=== PATIENT | male | born 1955 | race Caucasian/White ===

== ENCOUNTER → 2022-02-03 | Outpatient (CLI) | payer MEDICARE ==
[2022-02-03 10:33] LABS: Glucose,Whole Blood 162 mg/dL (70-110)
[2022-02-03 11:31] LABS: African American GFR (CKD) 48 (>60 ml/min/1.73 sqM); Anion Gap 11 mmol/L; Blood Urea Nitrogen 17 mg/dL (9-20); Carbon Dioxide 23 mmol/L (22-30); Chloride 105 mmol/L (98-107); Glucose 157 mg/dL (74-99); Non-African American GFR(CKD) 41 (>60 ml/min/1.73 sqM); Potassium 4.1 mmol/L (3.5-5.1); Sodium 139 mmol/L (137-145)
[2022-02-03 11:34] LABS: Appearance,Urine Turbid (Clear); Bacteria,Urine Occasional /hpf; Bilirubin,Urine Negative (Negative); Blood,Urine Moderate (Negative); Color,Urine Yellow; Glucose,Urine (UA) Negative (Negative); Ketones,Urine Negative (Negative); Leukocyte Esterase,Urine Large (Negative); Nitrite,Urine Negative (Negative); PH, Urine 6.5 (5.0-8.0); Protein,Urine 3+ (Negative); RBC,Urine 87 /hpf (0-5); Specific Gravity,Urine 1.016 (1.001-1.035); Squamous Epithelial Cell,Urine 1 /hpf (0-4); Urobilinogen,Urine <2.0 mg/dL (<2.0); WBC,Urine >182 /hpf (0-5)
[2022-02-03 11:44] LABS: Basophils # (A) 0.2 k/uL (0-0.2); Basophils % (A) 1 %; Eosinophils # (A) 0.3 k/uL (0-0.7); Eosinophils % (A) 2 %; HCT 37.1 % (39.0-53.0); HGB 11.1 gm/dL (13.0-17.5); Hypochromasia Marked; Lymphocytes % (A) 13 %; MCH 26.5 pg (25.0-35.0); MCV 88.3 fL (80.0-100.0); Mean Platelet Volume 7.9; Monocytes # (A) 0.7 k/uL (0-1.0); Monocytes % (A) 4 %; Neutrophils % (A) 78 %; Platelet Count 320 k/uL (150-450); RDW 15.4 % (11.5-15.5); WBC 15.4 k/uL (3.8-10.6)
== END | disposition home or self-care (01) ==
LOC: LABPAT 09:33
PROVIDERS: ATTEND Urology
DX: Z01.812 Encounter for preprocedural laboratory examination (principal); N40.1 Benign prostatic hyperplasia with lower urinary tract symptoms; N13.30 Unspecified hydronephrosis
CPT/HCPCS: 80048; 81001; 85025; 87086

== ENCOUNTER 2022-02-10 05:52 | Day surgery (SDC) | payer MEDICARE ==
--- NOTE | 2022-02-05 13:41 | P.HPIHPCON ---
History of Present Illness H&P Date: 02/05/22 This is a 66-year-old male with history of urinary retention, history of multiple trial of void. Underwent a CMG which showed evidence of bladder tone. Cystoscopy showed evidence of obstructive prostate. Option of a transurethral resection of the prostate was discussed with the patient and his . Discussed the risks which include but not limited to bleeding, infection, urinary incontinence, ED, retrograde ejaculation, persistent retention and urethral strictures. Risk from anesthesia was also discussed. He understood all the risk and agreed to proceed Consent for Procedure: I have explained the operation/procedure to the patient, including the risks, benefits, side effects, alternative therapies (including not receiving the proposed treatment or service), the likelihood of the patient achieving his/her goals, and potential recuperation problems for the procedure/sedation/analgesia, as well as any blood products, if indicated. I also explained to the patient the risks, benefits and side effects of the alternatives, as well as the risks related to not receiving the proposed procedure, care, treatment, or services. Surgical - Exam - General no distress, no pain - Eyes normal ocular movement, no pale - ENT normal nares, normal mucosa - Respiratory normal expansion, normal respiratory effort - Psychiatric oriented to time, oriented to person, oriented to place Assessment and Plan Assessment: All wire for a TURP
[2022-02-07 09:27] VITALS: BMI 22.9
[~2022-02-10 05:52] MED LIST: CIPROFLOXACIN/DEXTROSE PMX 400 MG in DEXTROSE/WATER 1 200ML.BAG IVPB PRN; GENTAMICIN 120 MG in SODIUM CHLORIDE 0.9% 100 ML IVPB PRN
[2022-02-10] MEDS ORDERED: ONDANSETRON 4 MG/2 ML VIAL IVP ONE (06:10)
[2022-02-10] MEDS ORDERED: DEXAMETHASONE SOD PHOSPHATE 4 MG/ML 1 ML VIAL IV ONE (06:10)
[2022-02-10] MEDS ORDERED: MIDAZOLAM 2 MG/2 ML VIAL IV PRN (06:10)
[2022-02-10] MEDS ORDERED: LACTATED RINGERS 1,000 ML IV SCH (06:10)
[2022-02-10] MEDS ORDERED: HYDROmorphone 0.5 MG/0.5 ML SYRINGE IVP PRN (07:00)
[2022-02-10] MEDS ORDERED: LIDOCAINE 2% INJ 20 MG/ML (2 ML VIAL) ONE (07:08)
[2022-02-10] MEDS ORDERED: GLYCOPYRROLATE 0.2 MG/ML 2 ML VIAL ONE (07:08)
[2022-02-10] MEDS ORDERED: PROPOFOL 10 MG/ML 20 ML VIAL IV ONE (07:08)
[2022-02-10] MEDS ORDERED: NEOSTIGMINE 1 MG/ML 10 ML VIAL ONE (07:08)
[2022-02-10] MEDS ORDERED: MIDAZOLAM 2 MG/2 ML VIAL ONE (07:08)
[2022-02-10] MEDS ORDERED: PHENYLEPHRINE-0.9% NACL SYG 1,000 MCG/10 ML SYRINGE ONE (07:08)
[2022-02-10] MEDS ORDERED: fentaNYL (PF) 50 MCG/ML 2 ML AMP ONE (07:08)
[2022-02-10] MEDS ORDERED: ROCURONIUM 10 MG/ML (5 ML VIAL) IV ONE (07:08)
[2022-02-10] MEDS ORDERED: IOPAMIDOL-370 150ML BTL MISCELLANE ONE (07:36)
--- NOTE | 2022-02-10 07:57 | FL ---
Intraoperative/procedural fluoroscopic services were provided for bilateral retrograde pyelogram. Tot al fluoroscopy time is 32 seconds with a total of 3 submitted images to PACS. Please see the operativ e note for further details.
[2022-02-10 08:45] VITALS: TEMP 97
[2022-02-10 08:47] VITALS: RESP 16
--- NOTE | 2022-02-10 09:02 | P.OP ---
Date of Procedure: 02/10/22 Preoperative Diagnosis: BPH, bilateral hydronephrosis Postoperative Diagnosis: Same Procedure(s) Performed: Cystoscopy, bilateral retrograde pyelogram, bilateral stent removal, TURP Implants: none Anesthesia: CLIFF Surgeon: Roberto Alves Estimated Blood Loss (ml): 50 Pathology: other (prostate tissue) Condition: stable Disposition: PACU Indications for Procedure: This is a 66-year-old male with history of urinary retention, history of multiple trial of void. Underwent a CMG which showed evidence of bladder tone. Cystoscopy showed evidence of obstructive prostate. Option of a transurethral resection of the prostate was discussed with the patient and his . Discussed the risks which include but not limited to bleeding, infection, urinary incontinence, ED, retrograde ejaculation, persistent retention and urethral strictures. Risk from anesthesia was also discussed. He understood all the risk and agreed to proceed Operative Findings: Adequate drainage of contrast from the bilateral collecting system, obstructive median lobe with a high medium bar Description of Procedure: Patient brought to the operating room, general anesthesia was induced. He was prepped and draped in sterile fashion and placed in dorsal lithotomy position. Cystoscopy fitted with 22-Armenian sheath was inserted per urethra, cystoscopy was performed which showed a heavily trabeculated bladder. There was evidence of a posterior bladder diverticulum. Additionally patient had an obstructive median lobe with a high medium bar. Of note the prostate was small but the bladder neck was almost completely obstructed secondary to the median lobe. Attention first was carried to the ureteral stent on the right, stent was grasped and removed to the meatus. Next a sensor wire was advanced through the stent and the stent was removed with the wire in place. Next an open-ended catheter was advanced over the wire, the wire removed with the catheter in place. Next retrograde Polygram was performed on the right side which showed a dilated ureter. Mild dilation of the collecting system. At this time the catheter was removed and delayed images were obtained, delayed images showed excellent drainage of the contrast. There was no residual contrast in the ureter. Attention was then carried to the left side, stent was grasped and removed to the meatus. Next a sensor wire was advanced through the stent the stent was removed with the wire in place. Next the catheter was advanced over the wire, the wire was removed with the catheter in place. Next retrograde pyelogram was performed through the catheter, retrograde showed a dilated ureter with mild dilation of the collecting system. But on obtaining delayed images there was excellent drainage of contrast. Given the drainage of contrast bilaterally decision was made to leave the stent out. At this time the cystoscope was withdrawn and a resectoscope fitted with a 25-Armenian sheath was inserted per urethra, using the bipolar resectoscope prostate was resected down to the surgical capsule. Resection was carried distal to the bladder neck, staying proximal to the veru. The area of bleeding was controlled with cautery. Repeats cystoscopy showed a wide open prostate fossa no evidence of bleeding. All prostate tissue was irrigated out and sent to pathology. At this time the resectoscope was withdrawn and a 20-Armenian coud catheter was placed with return of clear urine. The balloon was inflated to 30 mL. Patient tolerated the procedure was taken to recovery in stable condition
[2022-02-10 09:35] VITALS: BP 112/61; PULSE 86
== END 2022-02-10 10:17 | disposition home or self-care (01) ==
LOC: OR 05:52
PROVIDERS: ATTEND Urology
DX: N40.1 Benign prostatic hyperplasia with lower urinary tract symptoms (principal); N13.30 Unspecified hydronephrosis; R33.8 Other retention of urine; N13.8 Other obstructive and reflux uropathy; Z96.0 Presence of urogenital implants; N32.89 Other specified disorders of bladder; N32.3 Diverticulum of bladder; I12.9 Hypertensive chronic kidney disease with stage 1 through stage 4 chronic kidney disease, or unspecified chronic kidney disease; N18.30 Chronic kidney disease, stage 3 unspecified; Z99.2 Dependence on renal dialysis; E78.5 Hyperlipidemia, unspecified; J45.909 Unspecified asthma, uncomplicated; Z87.442 Personal history of urinary calculi; I69.351 Hemiplegia and hemiparesis following cerebral infarction affecting right dominant side; M19.90 Unspecified osteoarthritis, unspecified site; Z88.0 Allergy status to penicillin; Z79.899 Other long term (current) drug therapy; Z98.52 Vasectomy status; Z79.82 Long term (current) use of aspirin; Z80.9 Family history of malignant neoplasm, unspecified
CPT/HCPCS: 74420; 52601; 52005; C1758; C1769; J2250; J1100; J2710; J2405; J3010; J0744; J1580; J2370; J2704; Q9967; J2001; 88305; 88344

== ENCOUNTER → 2022-07-22 | Outpatient (CLI) | payer MEDICARE ==
--- NOTE | 2022-07-22 16:08 | US ---
EXAMINATION TYPE: US kidneys/renal and bladder DATE OF EXAM: 07/22/2022 COMPARISON: NONE CLINICAL HISTORY: 66-year-old male N13.30 UNSPECIFIED HYDRONEPHROSIS. Pt states h/o renal stones and renal stent placement and removal TECHNIQUE: Multiple sonographic images of the kidneys and bladder are obtained. FINDINGS: EXAM MEASUREMENTS: Right Kidney: 10.6 x 4.4 x 5.4 cm Left Kidney: 10.5 x 4.1 x 4.4 cm Right Kidney: Simple cyst lower pole= 4.4 x 4.1 x 4.1 cm. There is pelviectasis and minimal fullness of the calyceal system. Left Kidney: No evidence of hydronephrosis. Bladder: Severely trabeculated bladder wall. Possible 5mm calculus right bladder . At least one bladd er wall diverticula near the bladder dome measuring up to 5.2 cm. Bilateral Jets seen: No IMPRESSION: 1. Severe bladder wall trabeculations and at least one large diverticulum from the dome of the bladde r measuring 5.2 cm. Findings may reflect sequela of chronic bladder outlet obstruction and secondary muscular hypertrophy. Clinically correlate. Correlate with urine cytology and with urinalysis as well . There may be a 5 mm small bladder calculus. 2. Mild fullness of the right renal collecting system. Consider short interval follow-up to exclude e monica hydronephrosis. No hydronephrosis on the left. 3. Benign 4.4 cm cortical cyst right kidney.
== END | disposition home or self-care (01) ==
LOC: RADUSWWP 13:05
PROVIDERS: ATTEND Urology
DX: N13.30 Unspecified hydronephrosis (principal); N32.89 Other specified disorders of bladder; N32.3 Diverticulum of bladder; N28.1 Cyst of kidney, acquired; Z87.442 Personal history of urinary calculi
CPT/HCPCS: 76770

== ENCOUNTER 2022-11-07 18:28 | Emergency (ER) | payer MEDICARE ==
[2022-11-07 18:45] VITALS: TEMP 98
[2022-11-07 18:57] LABS: Glucose,Whole Blood 157 mg/dL (70-110)
--- NOTE | 2022-11-07 19:11 | CT ---
EXAMINATION TYPE: CT brain wo con for TPA CT DLP: 1831 mGycm, Automated exposure control for dose reduction was used. DATE OF EXAM: 11/07/2022 6:56 PM COMPARISON: 08/09/2012 CT brain, 08/06/2012 MRI brain. CLINICAL INDICATION:Male, 67 years old with history of Neuro deficit, acute, stroke suspected, TECHNIQUE: Brain: Axial CT images of the brain were obtained with coronal and sagittal reformats created and rev iewed. Contrast used: None. Oral contrast used: None. FINDINGS: Brain: Extra-axial spaces: No abnormal extra-axial fluid collections. Ventricular system: Dilatation in proportion to cerebral atrophy. Cerebral parenchyma: Low density areas within the left basal ganglia similar to prior. In prior right caudate nucleus lacunar injury. More remote appearing injury of the right occipital lobe. Somewhat d iffuse lower attenuation of the right MCA territory compared to left. Cerebral atrophy. No acute intr aparenchymal hemorrhage or mass effect. The blanco-white junction is well differentiated. Scattered hy poattenuating areas are seen within the white matter. Cerebellum: Unremarkable. Mass effect: No evidence of midline shift. Intracranial vasculature: Atherosclerotic calcifications of the intracranial vessels. Soft tissues: Normal. Calvarium/osseous structures: No depressed skull fracture. Paranasal sinuses and mastoid air cells: Mild scattered paranasal sinus disease. Visualized orbits: Orbital contents are intact. IMPRESSION: 1. No evidence for acute intercranial hemorrhage 2. Asymmetric decreased attenuation of the right MCA territory could represent ischemia. 3. Remote injuries of the bilateral basal ganglia right occipital lobe along with nonspecific white m atter changes.
[2022-11-07 19:13] VITALS: RESP 16
[2022-11-07] MEDS ORDERED: ASPIRIN 325 MG TAB PO STA (19:27)
[2022-11-07 19:29] LABS: ALT 18 U/L (4-49); AST 24 U/L (17-59); African American GFR (CKD) 54 (>60 ml/min/1.73 sqM); Albumin 4.1 g/dL (3.5-5.0); Alkaline Phosphatase 75 U/L (38-126); Anion Gap 14 mmol/L; Blood Urea Nitrogen 24 mg/dL (9-20); Calcium 8.5 mg/dL (8.4-10.2); Carbon Dioxide 22 mmol/L (22-30); Chloride 102 mmol/L (98-107); Creatine Kinase 152 U/L (55-170); Glucose 150 mg/dL (74-99); Non-African American GFR(CKD) 46 (>60 ml/min/1.73 sqM); Potassium 4.2 mmol/L (3.5-5.1); Sodium 138 mmol/L (137-145); Total Bilirubin 0.5 mg/dL (0.2-1.3); Total Protein 7.2 g/dL (6.3-8.2)
[2022-11-07 19:30] LABS: Alcohol <10 mg/dL
--- NOTE | 2022-11-07 19:30 | ED ---
General Adult HPI - General Chief complaint: Neuro Symptoms/Deficit Stated complaint: code alteplase Time Seen by Provider: 11/07/22 18:40 Source: patient Mode of arrival: ambulatory Limitations: no limitations - History of Present Illness Initial comments: 67-year-old male with past medical history of stroke presents to the emergency department reporting strokelike symptoms. He does have a history of stroke greater than 10 years ago. He was left with residual right upper extremity weakness. Patient is not on any blood thinners. reports that the patient was sitting on the couch watching TV this evening when he had sudden onset of aphasia. Patient was forced deviated to the right. EMS was called. Symptom onset was 1649. EMS did appreciate the symptoms however he had rapid improvement in route to the hospital. Upon hospital arrival the patient is able to answer questions appropriately however does have some visual neglect on the left. NIH is 5 (2 for right upper extremity weakness which is chronic). Patient denies headaches. No fevers. No head trauma. No chest pain or shortness of breath. No other alleviating, precipitating or modifying factors - Related Data Home Medications Medication Instructions Recorded Confirmed Aspirin [Adult Low Dose Aspirin EC] 81 mg PO DAILY 02/07/22 02/10/22 Budesonide/Glycopyr/Formoterol 1 puff INHALATION DAILY PRN 02/07/22 02/10/22 [Breztri Aerosphere Inhaler] Sulfamethox-Tmp 800-160Mg [Bactrim 1 tab PO DAILY 02/07/22 02/10/22 DS 800-160 mg] amLODIPine 10 mg PO DAILY 02/07/22 02/10/22 Previous Rx's Medication Instructions Recorded Phenazopyridine HCl [Pyridium] 100 mg PO TID #9 tab 02/10/22 Allergies Allergy/AdvReac Type Severity Reaction Status Date / Time Penicillins Allergy Unknown Verified 11/07/22 18:46 Review of Systems ROS Statement: Those systems with pertinent positive or pertinent negative responses have been documented in the HPI. ROS Other: All systems not noted in ROS Statement are negative. Past Medical History Past Medical History: CVA/TIA Additional Past Medical History / Comment(s): Current bladder infection, stroke 10 years ago, weakness on his R side. Wears brace on R leg. Just statrted on a inhaler. Just started Bactrim. History of Any Multi-Drug Resistant Organisms: None Reported Additional Past Surgical History / Comment(s): Colonoscopy, Additional Past Anesthesia/Blood Transfusion Reaction / Comment(s): Spouse s tates her gets "goofy". Past Psychological History: No Psychological Hx Reported Smoking Status: Never smoker - Past Family History Mother Family Medical History: No Reported History Sister(s) Family Medical History: Cancer Father Family Medical History: Cancer General Exam Limitations: altered mental status General appearance: alert, in no apparent distress Head exam: Present: atraumatic, normocephalic, normal inspection Eye exam: Present: normal appearance, PERRL, EOMI, other (Patient has neglect to the left side. Peripheral vision on the left side is impaired). Absent: scleral icterus, conjunctival injection, periorbital swelling ENT exam: Present: normal exam, mucous membranes moist Neck exam: Present: normal inspection. Absent: tenderness, meningismus, lymphadenopathy Respiratory exam: Present: normal lung sounds bilaterally. Absent: respiratory distress, wheezes, rales, rhonchi, stridor Cardiovascular Exam: Present: regular rate, normal rhythm, normal heart sounds. Absent: systolic murmur, diastolic murmur, rubs, gallop, clicks GI/Abdominal exam: Present: soft, normal bowel sounds. Absent: distended, tenderness, guarding, rebound, rigid Extremities exam: Present: other (Chronic weakness with contracture of the right arm. Does have some strength against gravity. This is chronic for the patient. 4 out of 5 strength of the left upper, left lower and right lower extremities) Neurological exam: Present: alert, oriented X3 Skin exam: Present: warm, dry, intact, normal color. Absent: rash Course Vital Signs 11/07/22 11/07/22 11/07/22 18:40 18:55 19:12 Temperature 98 F Pulse Rate 90 98 96 Respiratory 18 18 16 Rate Blood Pressure 179/104 180/104 183/95 O2 Sat by Pulse 89 L 98 95 Oximetry 11/07/22 11/07/22 11/07/22 19:27 20:00 20:16 Temperature Pulse Rate 96 93 91 Respiratory 16 16 16 Rate Blood Pressure 164/104 166/103 172/110 O2 Sat by Pulse 96 98 97 Oximetry EKG Findings - EKG Comments: EKG Findings:: EKG demonstrates sinus rhythm with a rate of 95. AR interval 171. QRS 94. QTC of 394. No acute ST segment elevations or depressions Medical Decision Making - Medical Decision Making Was pt. sent in by a medical professional or institution ([employer] Newton, DELIVERY AND INSTALLATION SUBCONTRACTOR, urgent care, hospital, or group home...) When possible be specific @ -No Did you speak to anyone other than the patient for history (EMS, parent, family, police, friend...)? What history was obtained from this source @ -EMS state that patient was completely deviated to the right on their arrival Did you review nursing and triage notes (agree or disagree)? Why? @ -I reviewed and agree with nursing and triage notes Were old charts reviewed (outside hosp., previous admission, EMS record, old EKG, old radiological studies, urgent care reports/EKG's, group home records)? Report findings @ -no charts reviewed Differential Diagnosis (chest pain, altered mental status, abdominal pain women, abdominal pain men, vaginal bleeding, weakness, fever, dyspnea, syncope, headache, dizziness, GI bleed, back pain, seizure, CVA, palpatations, mental health, musculoskeletal)? @ -CVA, brain mass, aneurysm rupture, complex migraine, TIA, SAH, SDH EKG interpreted by me (3pts min.). @ -yes - interpreted by me - please see above X-rays interpreted by me (1pt min.). @ -yes - interpreted by me CT interpreted by me (1pt min.). @ -yes - interpreted by me U/S interpreted by me (1pt. min.). @ -None done What testing was considered but not performed or refused? (CT, X-rays, U/S, labs)? Why? @ -None What meds were considered but not given or refused? Why? @ -None Did you discuss the management of the patient with other professionals (professionals i.e. [employer] Newton, DELIVERY AND INSTALLATION SUBCONTRACTOR, lab, RT, psych nurse, social worker masters, supervisor color paste mixing, teacher, seal delivery vehicle officer, bilingual patient support caseworker)? Give summary @ - Yes, discussed case with neurointensivist - wants patient transferred for angiogram Was smoking cessation discussed for >3mins.? @ -No Was critical care preformed (if so, how long)? @ -yes, 40 minutes for cva management Were there social determinants of health that impacted care today? How? (Homelessness, low income, unemployed, alcoholism, drug addiction, transportat ion, low edu. Level, literacy, decrease access to med. care, assisted, rehab)? @ -No Was there de-escalation of care discussed even if they declined (Discuss DNR or withdrawal of care, Hospice)? DNR status @ -No What co-morbidities impacted this encounter? (DM, HTN, Smoking, COPD, CAD, Cancer, CVA, ARF, Chemo, Hep., AIDS, mental health diagnosis, sleep apnea, morbid obesity)? @ -previous cva Was patient admitted / discharged? Hospital course, mention meds given and route, prescriptions, significant lab abnormalities, going to OR and other pertinent info. @ - Upon arrival patient is placed into room 2. Thorough history and physical exam was performed. IV had been established I EMS. Patient was on continuous pulse ox and cardiac monitoring. 12-lead EKG was obtained. NIH is assessed and is 5. Patient does have a score of 2 previous right upper extremity weakness. New-onset left neglect and left hemianopsia. Patient is sent for CT and CT angiography. I did speak with Dr. Teague. Patient does have concern for vascular malformation on angiogram. Would like the patient transferred to [facility]. I did call and speak with Dr. zabala in the emergency department does accept the patient is a transfer. Dr. Teague does recommend a full dose aspirin for which the patient is provided. Patient was agreeable to transfer. Neurologic status continued to improve and patient returned to a baseline age of 1 prior to discharge. COBRA forms are signed and patient transferred in stable condition Undiagnosed new problem with uncertain prognosis? @ -Yes Drug Therapy requiring intensive monitoring for toxicity (Heparin, Nitro, Insulin, Cardizem)? @ -No Were any procedures done? @ -No Diagnosis/symptom? @ -acute aphasia, acute visual deficit, suspected cva Acute, or Chronic, or Acute on Chronic? @ -acute Uncomplicated (without systemic symptoms) or Complicated (systemic symptoms)? @ -complicated Side effects of treatment? @ -No Exacerbation, Progression, or Severe Exacerbation? @ -No Poses a threat to life or bodily function? How? (Chest pain, [place], [place], pneumonia, PE, COPD, DKA, ARF, appy, cholecystitis, CVA, Diverticulitis, Homicidal, Suicidal, threat to staff... and all critical care pts) @ -yes - Lab Data Result diagrams: 11/07/22 19:11 11/07/22 19:11 Lab Results 11/07/22 11/07/22 11/07/22 Range/Units 18:55 19:11 19:11 WBC 7.5 (3.8-10.6) k/uL RBC 4.52 (4.30-5.90) m/uL Hgb 12.1 L (13.0-17.5) gm/dL Hct 36.5 L (39.0-53.0) % MCV 80.9 (80.0-100.0) fL MCH 26.7 (25.0-35.0) pg MCHC 33.0 (31.0-37.0) g/dL RDW 14.7 (11.5-15.5) % Plt Count 85 L (150-450) k/uL MPV 7.7 Neutrophils % (Manual) 80 % Lymphocytes % (Manual) 15 % Monocytes % (Manual) 5 % Neutrophils # (Manual) 6.00 (1.3-7.7) k/uL Lymphocytes # (Manual) 1.13 (1.0-4.8) k/uL Monocytes # (Manual) 0.38 (0-1.0) k/uL Nucleated RBCs 0 (0-0) /100 WBC Manual Slide Review Performed Ovalocytes Present Sodium 138 (137-145) mmol/L Potassium 4.2 (3.5-5.1) mmol/L Chloride 102 (98-107) mmol/L Carbon Dioxide 22 (22-30) mmol/L Anion Gap 14 mmol/L BUN 24 H (9-20) mg/dL Creatinine 1.52 H (0.66-1.25) mg/dL Est GFR (CKD-EPI)AfAm 54 (>60 ml/min/1.73 sqM) Est GFR (CKD-EPI)NonAf 46 (>60 ml/min/1.73 sqM) Glucose 150 H (74-99) mg/dL POC Glucose (mg/dL) 157 H (70-110) mg/dL POC Glu Cream Hauler ID Asad Shearer Calcium 8.5 (8.4-10.2) mg/dL Total Bilirubin 0.5 (0.2-1.3) mg/dL AST 24 (17-59) U/L ALT 18 (4-49) U/L Alkaline Phosphatase 75 (38-126) U/L Creatine Kinase 152 (55-170) U/L Troponin I (0.000-0.034) ng/mL Total Protein 7.2 (6.3-8.2) g/dL Albumin 4.1 (3.5-5.0) g/dL Serum Alcohol <10 mg/dL 11/07/22 Range/Units 19:11 WBC (3.8-10.6) k/uL RBC (4.30-5.90) m/uL Hgb (13.0-17.5) gm/dL Hct (39.0-53.0) % MCV (80.0-100.0) fL MCH (25.0-35.0) pg MCHC (31.0-37.0) g/dL RDW (11.5-15.5) % Plt Count (150-450) k/uL MPV Neutrophils % (Manual) % Lymphocytes % (Manual) % Monocytes % (Manual) % Neutrophils # (Manual) (1.3-7.7) k/uL Lymphocytes # (Manual) (1.0-4.8) k/uL Monocytes # (Manual) (0-1.0) k/uL Nucleated RBCs (0-0) /100 WBC Manual Slide Review Ovalocytes Sodium (137-145) mmol/L Potassium (3.5-5.1) mmol/L Chloride (98-107) mmol/L Carbon Dioxide (22-30) mmol/L Anion Gap mmol/L BUN (9-20) mg/dL Creatinine (0.66-1.25) mg/dL Est GFR (CKD-EPI)AfAm (>60 ml/min/1.73 sqM) Est GFR (CKD-EPI)NonAf (>60 ml/min/1.73 sqM) Glucose (74-99) mg/dL POC Glucose (mg/dL) (70-110) mg/dL POC Glu Cream Hauler ID Calcium (8.4-10.2) mg/dL Total Bilirubin (0.2-1.3) mg/dL AST (17-59) U/L ALT (4-49) U/L Alkaline Phosphatase (38-126) U/L Creatine Kinase (55-170) U/L Troponin I <0.012 (0.000-0.034) ng/mL Total Protein (6.3-8.2) g/dL Albumin (3.5-5.0) g/dL Serum Alcohol mg/dL Critical Care Time Critical Care Time: Yes Critical Care Time: 40 minutes for code alteplase activation Disposition Clinical Impression: Aphasia, Visual disturbance, CVA (cerebral vascular accident) Disposition: OTHER INSTITUTION NOT DEFINED Condition: Serious Is patient prescribed a controlled substance at d/c from ED?: No Referrals: Jaden Cordero MD [Primary Care Provider] - 1-2 days Time of Disposition: 19:27 Decision to Admit Reason: Admit from EC Decision Date: 11/07/22 Decision Time: 19:27 - Out of Hospital Transfer - Req. Specs Out of Hospital Transfer - Requested Specifics: Other Emergency Center ([facility])
--- NOTE | 2022-11-07 19:48 | CT ---
EXAMINATION TYPE: CT angio head neck CT DLP: 1831.5 mGycm, Automated exposure control for dose reduction was used. DATE OF EXAM: 11/07/2022 7:15 PM COMPARISON: CT head same day. CLINICAL INDICATION:Male, 67 years old with history of Neuro deficit, acute, stroke suspected; PHH, n euro deficit TECHNIQUE: Axially acquired helical CT angiogram of the head and neck was obtained with contrast. Axi al images are supplemented with 3D reconstructions which [facility] NASCET criteria used. Contrast used:65ml mL of Isovue 370 with IV Contrast, Oral contrast used: None. FINDINGS: CTA HEAD: No evidence of acute intracranial hemorrhage, mass effect, or midline shift. The ventricles, sulci, a nd cisterns are unremarkable. The visualized portions of the internal carotid arteries, middle cerebral arteries, anterior cerebral arteries, and posterior cerebral arteries are patent. Atherosclerosis of the intracranial internal c arotid arteries. The basilar and vertebral arteries are patent. CTA NECK: Right Carotid System: The common carotid and external carotid arteries are patent. There is approximately 25% stenosis at t he carotid bifurcation secondary to calcified/noncalcified plaquing. The rest of the internal carotid artery is patent. Left Carotid System: The common carotid and external carotid arteries are patent. There is approximately 25% stenosis at t he carotid bifurcation secondary to calcified/noncalcified plaquing. The rest of the internal carotid artery is patent. Vertebral arteries are patent without evidence hemodynamically significant stenosis. There is a three-vessel aortic arch. The origins of the great vessels are patent. No evidence of hemo dynamically significant stenosis. IMPRESSION: 1. No evidence of dissection of the cervical internal carotid arteries or vertebral arteries or any e vidence of significant stenosis at the carotid bifurcations. 2. No evidence of intracranial high-grade stenosis or intracranial aneurysm.
[2022-11-07 20:05] LABS: HCT 36.5 % (39.0-53.0); HGB 12.1 gm/dL (13.0-17.5); MCH 26.7 pg (25.0-35.0); MCV 80.9 fL (80.0-100.0); Mean Platelet Volume 7.7; RBC 4.52 m/uL (4.30-5.90); RDW 14.7 % (11.5-15.5); WBC 7.5 k/uL (3.8-10.6)
--- NOTE | 2022-11-07 20:05 | XR ---
EXAMINATION TYPE: XR chest 2V DATE OF EXAM: 11/07/2022 7:56 PM COMPARISON: Chest radiographs from 08/05/2012, CTA 08/08/2012 TECHNIQUE: XR chest 2V Frontal and lateral views of the chest. CLINICAL INDICATION:Male, 67 years old with history of altered mental status; FINDINGS: Lungs/Pleura: No evidence of focal consolidation or pneumothorax. Blunting of the costophrenic angles is present. Pulmonary vascularity: Unremarkable. Heart/mediastinum: Cardiomediastinal silhouette is enlarged and stable. Musculoskeletal: No acute osseous pathology. IMPRESSION: Cardiomegaly, pulmonary vascular congestion and bilateral pleural effusions. Correlate with BNP for c ongestive heart failure.
[2022-11-07 20:21] VITALS: BP 172/110; PULSE 91
[2022-11-07 20:25] LABS: Platelet Count 85 k/uL (150-450)
[2022-11-07 20:54] LABS: Lymphocytes # (M) 1.13 k/uL (1.0-4.8); Monocytes # (M) 0.38 k/uL (0-1.0); Neutrophils % (M) 80 %; Nucleated Red Blood Cells 0 /100 WBC (0-0); Total Cells Counted 100
[2022-11-07 20:55] LABS: Ovalocytes Present
== END 2022-11-07 20:25 | disposition other institution (70) ==
LOC: EC 18:28
DX: R47.01 Aphasia (principal); H53.9 Unspecified visual disturbance; I63.9 Cerebral infarction, unspecified; Z88.0 Allergy status to penicillin; Z79.82 Long term (current) use of aspirin
CPT/HCPCS: 36415; 93005; 80053; 82550; 84484; 85025; 71046; 70496; 70450; 70498; 99291; G0480; Q9967; 80320

== ENCOUNTER 2023-04-30 12:07 | Emergency (ER) | payer MEDICARE ==
[2023-04-30] MEDS ORDERED: DIPH,PERTUS(ACELL)TETVAC-LF 0.5 ML VIAL IM ONE (13:51)
[2023-04-30] MEDS ORDERED: LIDOCAINE 1% INJ 10MG/ML (20 ML MDV) SQ ONE (13:51)
--- NOTE | 2023-04-30 14:08 | ED ---
General Adult HPI - General Chief complaint: Wound/Laceration Stated complaint: laceration/left hand Time Seen by Provider: 04/30/23 13:24 Source: patient, RN notes reviewed Mode of arrival: ambulatory Limitations: no limitations - History of Present Illness Initial comments: Patient is a 67-year-old male presenting to the ER with a chief complaint of a fall/hand injury. Patient states he tripped over his cat this morning and fell hitting an antique table. Patient states he hit the back of his head and has a knot on his head. Denies loss of consciousness or nausea/vomiting. Patient states he was on blood thinners but was taken off about 3 months ago. Patient is unsure of his latest tetanus vaccination. Patient denies any other complaints at this time. - Related Data Home Medications Medication Instructions Recorded Confirmed Aspirin [Adult Low Dose Aspirin EC] 81 mg PO DAILY 02/07/22 02/10/22 Budesonide/Glycopyr/Formoterol 1 puff INHALATION DAILY PRN 02/07/22 02/10/22 [Breztri Aerosphere Inhaler] Sulfamethox-Tmp 800-160Mg [Bactrim 1 tab PO DAILY 02/07/22 02/10/22 DS 800-160 mg] amLODIPine 10 mg PO DAILY 02/07/22 02/10/22 Previous Rx's Medication Instructions Recorded Phenazopyridine HCl [Pyridium] 100 mg PO TID #9 tab 02/10/22 Allergies Allergy/AdvReac Type Severity Reaction Status Date / Time Penicillins Allergy Unknown Verified 04/30/23 12:31 Review of Systems ROS Statement: Those systems with pertinent positive or pertinent negative responses have been documented in the HPI. ROS Other: All systems not noted in ROS Statement are negative. Past Medical History Past Medical History: CVA/TIA Additional Past Medical History / Comment(s): Current bladder infection, stroke 10 years ago, weakness on his R side. Wears brace on R leg. Just statrted on a inhaler. Just started Bactrim. History of Any Multi-Drug Resistant Organisms: None Reported Additional Past Surgical History / Comment(s): Colonoscopy, Additional Past Anesthesia/Blood Transfusion Reaction / Comment(s): Spouse states her gets "goofy". Past Psychological History: No Psychological Hx Reported Smoking Status: Never smoker Past Alcohol Use History: None Reported Past Drug Use History: Marijuana - Past Family History Mother Family Medical History: No Reported History Sister(s) Family Medical History: Cancer Father Family Medical History: Cancer General Exam Limitations: no limitations General appearance: alert, in no apparent distress Head exam: Present: other (golf ball size scalp hematoma noted) Eye exam: Present: normal appearance, PERRL, EOMI. Absent: scleral icterus, conjunctival injection, periorbital swelling Respiratory exam: Present: normal lung sounds bilaterally. Absent: respiratory distress, wheezes, rales, rhonchi, stridor Cardiovascular Exam: Present: regular rate, normal rhythm, normal heart sounds. Absent: systolic murmur, diastolic murmur, rubs, gallop, clicks GI/Abdominal exam: Present: soft, normal bowel sounds. Absent: distended, tenderness, guarding, rebound, rigid Extremities exam: Present: other (Ecchymosis noted over right first digit IP joint. Limited ROM.) Neurological exam: Present: alert, oriented X3, CN II-XII intact Psychiatric exam: Present: normal affect, normal mood Skin exam: Present: other (left hand laceration on dorsal aspect proximal to 4th and 5th digits. ) Course Vital Signs 04/30/23 04/30/23 04/30/23 12:26 14:20 15:41 Temperature 97.4 F L 98 F 98 F Pulse Rate 79 67 65 Respiratory 18 16 16 Rate Blood Pressure 131/77 137/81 140/74 O2 Sat by Pulse 99 98 98 Oximetry 04/30/23 16:57 Temperature 98 F Pulse Rate 69 Respiratory 18 Rate Blood Pressure 138/76 O2 Sat by Pulse 98 Oximetry Procedures - Laceration Laceration #1 Consent Obtained: verbal consent Site: hand Description: flap Depth: simple, single layer Anesthetic Used: lidocaine 1% Anesthesia Technique: local infiltration Amount (mls): 5 Pre-repair: wound explored, irrigated extensively, deep structures intact Type of Sutures: nylon Size of Sutures: 4-0 Number of Sutures: 8 Technique: simple, interrupted Patient Tolerated Procedure: well, no complications Medical Decision Making - Medical Decision Making Was pt. sent in by a medical professional or institution (, PA, LITIGATION ASSISTANT, urgent care, hospital, or long term...) When possible be specific @ -No Did you speak to anyone other than the patient for history (EMS, parent, family, police, friend...)? What history was obtained from this source @ -No Did you review nursing and triage notes (agree or disagree)? Why? @ -I reviewed and agree with nursing and triage notes Were old charts reviewed (outside hosp., previous admission, EMS record, old EKG, old radiological studies, urgent care reports/EKG's, long term records)? Report findings @ -No old charts were reviewed Differential Diagnosis (chest pain, altered mental status, abdominal pain women, abdominal pain men, vaginal bleeding, weakness, fever, dyspnea, syncope, headache, dizziness, GI bleed, back pain, seizure, CVA, palpatations, mental health, musculoskeletal)? @ -Differential Musculoskeletal Muscular strain, contusion, ligament sprain, fracture, arthritis, septic arthritis, bursitis, cellulitis, muscle spasm, nerve compression, DVT, arterial occlusion, herpes zoster, electrolyte abnormality, tumor.... This is not meant to be in all inclusive list EKG interpreted by me (3pts min.). @ -None X-rays interpreted by me (1pt min.). @ -X-ray of right hand shows no acute displaced fractures or dislocations. CT interpreted by me (1pt min.). @ -CT brain C-spine shows no acute osseous abnormalities of the cervical spine. No intercranial hemorrhages/mass effect noted. U/S interpreted by me (1pt. min.). @ -None done What testing was considered but not performed or refused? (CT, X-rays, U/S, labs)? Why? @ -None What meds were considered but not given or refused? Why? @ -None Did you discuss the management of the patient with other professionals (professionals i.e. , PA, LITIGATION ASSISTANT, lab, RT, psych nurse, social work coordinator, sheet metal fabricator, teacher, jail officer, adult protective caseworker)? Give summary @ -No Was smoking cessation discussed for >3mins.? @ -No Was critical care preformed (if so, how long)? @ -No Were there social determinants of health that impacted care today? How? (Homelessness, low income, unemployed, alcoholism, drug addiction, transportation, low edu. Level, literacy, decrease access to med. care, [facility], rehab)? @ -No Was there de-escalation of care discussed even if they declined (Discuss DNR or withdrawal of care, Hospice)? DNR status @ -No What co-morbidities impacted this encounter? (DM, HTN, Smoking, COPD, CAD, Cancer, CVA, ARF, Chemo, Hep., AIDS, mental health diagnosis, sleep apnea, morbid obesity)? @ -None Was patient admitted / discharged? Hospital course, mention meds given and route, prescriptions, significant lab abnormalities, going to OR and other pertinent info. @ -[Discharge. Patient is 67-year-old male presented to ER with chief complaint of a fall. X-ray of the right hand showed no acute displaced fractures or dislocation. CT of brain and C-spine negative for acute osseous abnormalities. No intracranial hemorrhages/mass effect noted. Laceration on left hand was sutured closed. Patient advised to return in 7-10 days for suture removal. Patient will be discharged home in stable condition with follow-up to his PCP. Patient expressed understanding. Undiagnosed new problem with uncertain prognosis? @ -No Drug Therapy requiring intensive monitoring for toxicity (Heparin, Nitro, Insulin, Cardizem)? @ -No Were any procedures done? @ -Yes Diagnosis/symptom? @ -Hand laceration Acute, or Chronic, or Acute on Chronic? @ -Acute Uncomplicated (without systemic symptoms) or Complicated (systemic symptoms)? @ -Uncomplicated Side effects of treatment? @ -No Exacerbation, Progression, or Severe Exacerbation? @ -No Poses a threat to life or bodily function? How? (Chest pain, USA, ID, pneumonia, PE, COPD, DKA, ARF, appy, cholecystitis, CVA, Diverticulitis, Homicidal, Suicidal, threat to staff... and all critical care pts) @ -No - Radiology Data Radiology results: report reviewed, image reviewed Disposition Clinical Impression: Laceration Disposition: HOME SELF-CARE Condition: Stable Additional Instructions: Please return to the Emergency Department if symptoms worsen or any other concerns. Please keep wound clean and dry. Please sutures removed in 7-10 days. Is patient prescribed a controlled substance at d/c from ED?: No Referrals: Jaden Cordero MD [Primary Care Provider] - 1-2 days Time of Disposition: 16:22
--- NOTE | 2023-04-30 15:29 | CT ---
EXAMINATION TYPE: CT brain krissy watson con DATE OF EXAM: 04/30/2023 COMPARISON: 11/07/2022 HISTORY: Fall, pain CT DLP: 1807.70 mGycm, Automated exposure control for dose reduction was used. CONTRAST: Patient injected with 0 mL of Isovue 300. CT of the brain is performed utilizing 3 mm thick sections through the posterior fossa and 3 mm thick sections through the remaining calvarium. Study is performed within 24 hours of arrival to the hospital. No abnormal hyperdensity is present to suggest an acute intracranial hemorrhage. No mass lesion is evident. No acute infarcts are evident. There may be an old right occipital lobe infarct. Periventricular whi te matter hypodensity is present, likely on the basis of chronic white matter ischemic changes. Hypod ensities within the left and right basal ganglia and left thalamus are present, can be on the basis o f old lacunar infarcts. Findings appear stable from comparison. Ventricles and sulci are appropriate for the patient age. Mild mucosal thickening in the right maxillary sinus. Remaining paranasal sinuses are clear. IMPRESSIONS: 1. Periventricular white matter hypodensity, likely on the basis of chronic white matter ischemic caridad nges. 2. Old lacunar infarcts. An old right occipital lobe infarct is likely present. 3. Follow-up MRI can be performed as clinically indicated. CT cervical spine. COMPARISON: None CT of the cervical spine is performed in the axial plane at 2 mm thick sections. Reconstructed image s in the coronal, and sagittal plane are reviewed on the computer. No acute fractures are evident. Vertebral body alignment is normal. Disc space narrowing is present through the lateral cervical spine greatest at C5-6 C6-7. Small anter ior and posterior vertebral body spurs are present at these levels. No AP spinal canal stenosis is pr esent. Vertebral body heights are preserved. No spinal canal stenosis is evident. Facet hypertrophy is present contributing to some foraminal narrowing C5-6 bilaterally C4-5 on the le ft. IMPRESSION: 1. No acute osseous abnormality cervical spine. 2. Degenerative changes within the cervical spine discussed above
[2023-04-30 15:44] VITALS: TEMP 98
--- NOTE | 2023-04-30 15:58 | XR ---
EXAMINATION TYPE: XR hand complete RT DATE OF EXAM: 04/30/2023 COMPARISON: None HISTORY: Laceration pain, fall TECHNIQUE: 3 view right hand FINDINGS: There is some contracture of the digits. Structures are osteopenic. This may make identifi cation of occult fractures difficult. Diffuse narrowing joint space is evident No acute displaced fractures are identified. Soft tissues appear normal. Follow up exams can be performed as clinically indicated. IMPRESSION: 1. No acute osseous abnormality right hand. 2. Osteoporosis
[2023-04-30] MEDS ORDERED: BACITRACIN OINT 1 EACH PACKET TOPICAL ONE (16:26)
[2023-04-30 17:09] VITALS: BP 138/76; PULSE 69; RESP 18
== END 2023-04-30 17:01 | disposition home or self-care (01) ==
LOC: EC 12:07
DX: S61.412A Laceration without foreign body of left hand, initial encounter (principal); M47.812 Spondylosis without myelopathy or radiculopathy, cervical region; F12.90 Cannabis use, unspecified, uncomplicated; Z79.82 Long term (current) use of aspirin; Z88.0 Allergy status to penicillin; Z86.73 Personal history of transient ischemic attack (TIA), and cerebral infarction without residual deficits; Z23 Encounter for immunization; W01.190A Fall on same level from slipping, tripping and stumbling with subsequent striking against furniture, initial encounter
CPT/HCPCS: 73130; 72125; 70450; 90715; 99284; 90471; 12001; J2001